=== PATIENT | male | born 1985 | race Two or more races ===

== ENCOUNTER 2020-06-24 02:24 | Emergency (ER) | payer OTHER ==
[~2020-06-24] VITALS: Ht 177.8 cm; Wt 81.6 kg
--- NOTE | 2020-06-24 02:40 | NUR ---
[facility] EMERGENCY SPOKE TO [employer] EDUCATION PROFESSOR [id number]. WILL SENT UNIT TO INTERVIEW PATIENT. REFERENCE #[id number].
[2020-06-24] MEDS ORDERED: KETOROLAC TROMETHAMINE 60 MG INJ IM ONE ×2 (02:45→02:51)
[2020-06-24] MEDS ORDERED: NAPR-1164 PO (02:49)
[2020-06-24] MEDS ORDERED: norco PO (02:49)
[2020-06-24 03:04] VITALS: BP 134/86
--- NOTE | 2020-06-24 03:05 | NUR ---
Patient discharged to home in stable condition. Written and verbal after care instructions given. Patient verbalizes understanding of instructions. Stressed follow up or return to ER for worsening s/s. Belongings with patient.
== END 2020-06-24 03:05 | disposition home or self-care (01) ==
LOC: ER 02:33
DX: S80.02XA Contusion of left knee, initial encounter (principal); M25.462 Effusion, left knee; V13.4XXA Pedal cycle driver injured in collision with car, pick-up truck or van in traffic accident, initial encounter; Y93.55 Activity, bike riding; Y92.89 Other specified places as the place of occurrence of the external cause; E03.9 Hypothyroidism, unspecified
CPT/HCPCS: 73560; A4663; J1885